=== PATIENT | female | born 1975 | race Caucasian/White ===

== ENCOUNTER 2017-10-05 18:46 | Emergency (ER) | payer MEDICAID ==
[2017-10-05] MEDS ORDERED: predniSONE 20 MG Tab PO ONE (20:07)
[2017-10-05 20:09] VITALS: BP 126/76
--- NOTE | 2017-10-06 11:53 | CR ---
INDICATION: Cough. CHEST: PA and lateral views of the chest 10/06/2017 were compared with 2014 and revealed the heart to appear somewhat prominent in size. Evidence of exogenous obesity is again noted. A definite active infiltrate or effusion was not identified. IMPRESSION: Stable chest, no evidence of an acute process. No definite CHF at this time. Exogenous obesity. Possible mild cardiac enlargement. MTDD
--- NOTE | 2017-10-07 17:36 | ER ---
DATE SEEN: 10/05/2017 CHIEF COMPLAINT: Cough. HISTORY OF PRESENT ILLNESS: This is a 42-year-old female complaining of cough for 2 days, fever up to 101. She has a history of asthma and she has had difficulty breathing, using a rescue inhaler more often. PAST MEDICAL HISTORY: Obesity, asthma. SOCIAL HISTORY: She does not smoke. ALLERGIES: No known allergies. PHYSICAL EXAMINATION: VITAL SIGNS: Blood pressure 144/81, oxygenation 97%, temperature 99.4, pulse 108. EARS, NOSE AND THROAT: Negative. HEAD: Normal size. CHEST: End-expiratory rhonchi. EXTREMITIES: No edema. IMPRESSION: Acute bronchitis. PLAN: I did an influenza A and B that were negative. Chest x-ray was unremarkable. I sent the patient home on prednisone 10 mg b.i.d. with a followup in 24 hours. TIME SEEN: 1930 hours. /[id number] HARINI/MISAEL
== END 2017-10-05 20:01 | disposition home or self-care (01) ==
LOC: FB.ED 18:46
DX: J20.9 Acute bronchitis, unspecified (principal); J45.909 Unspecified asthma, uncomplicated; E66.9 Obesity, unspecified
CPT/HCPCS: 71046; 87804; 99283; A9270-GY